=== PATIENT | male | born 2000 | race Caucasian/White ===

== ENCOUNTER 2019-08-14 15:20 | Emergency (ER) | payer OTHER ==
[~2019-08-14] VITALS: Ht 180.3 cm; Wt 75.0 kg
[2019-08-14 15:41] VITALS: BP 110/56
--- NOTE | 2019-08-14 16:09 | PHYS DOC ---
Past Medical History Past Medical History: No Pertinent History Past Surgical History: No Surgical History Smoking Status: Never Smoker Alcohol Use: None Adult General Chief Complaint Chief Complaint: LACERATION/AVULSION HPI HPI Patient is a 19 year old male, accompanied by his employer, who presents to the emergency department with complaints of a laceration between his thumb and index finger of his right hand. Patient states excellently crushed his hand between a piece of equipment and a pole. He denies any numbness, tingling, or weakness of the affected hand. He denies any decreased range of motion of the affected fingers of his right hand. Patient states he is unsure when his last tetanus shot was. He currently rates his pain a 5 out of 10 on the pain scale, he denies any alleviating factors. Review of Systems Review of Systems All other ROS is negative unless otherwise noted in HPI. Current Medications Current Medications Current Medications Medications (Trade) Dose Ordered Sig/Hawk Start Time Stop Time Status Last Admin Dose Admin Diphtheria/ Tetanus/Acell Pertussis (Boostrix) 0.5 ml ONCE ONCE 08/14/19 16:15 08/14/19 16:16 DC 08/14/19 16:12 0.5 ML Lidocaine HCl (Xylocaine-Mpf 1% 2ml Vial) 4 ml 1X ONCE 08/14/19 16:15 08/14/19 16:16 DC 08/14/19 16:11 4 ML Neomycin/ Polymyxin/ Bacitracin (Triple Antibiotic Ointment) 1 pkt 1X ONCE 08/14/19 16:15 08/14/19 16:16 DC 08/14/19 16:11 1 PKT Allergies Allergies Allergies Coded Allergies Type Severity Reaction Last Updated Verified minocycline Allergy Mild 08/14/19 Yes Physical Exam Physical Exam See Above Constitutional: Well developed, well nourished, no acute distress, non-toxic appearance. [] HENT: Normocephalic, atraumatic, bilateral external ears normal, nose normal. [] Eyes: PERRLA, EOMI, conjunctiva normal, no discharge. [] Neck: Normal range of motion, no stridor. [] Cardiovascular:Heart rate regular rhythm, Lungs & Thorax: Respirations even and unlabored, no retractions, no respiratory distress Skin: Warm, dry, no erythema, no rash; 1.5 cm laceration noted between the first and second digits of the right hand on the volar surface, no active bleeding, several surrounding superficial abrasions; R wrist non-tender to palpation, no scaphoid tenderness [] Extremities: R hand; some bony TTP with palpation of proximal R thumb and proximal R index finger, no crepitus, no obvious deformity, no cyanosis, no clubbing, ROM intact, no edema. [] Neurologic: Alert and oriented X 3, no focal deficits noted. [] Psychologic: Affect normal, judgement normal, mood normal. [] Current Patient Data Vital Signs Vital Signs Date Time Temp Pulse Resp B/P (MAP) Pulse Ox O2 Delivery O2 Flow Rate FiO2 08/14/19 15:41 97.9 59 16 110/56 (74) 99 Room Air 97.9 EKG EKG [] Radiology/Procedures Radiology/Procedures Laceration Repair by me: Anesthesia: 1% lidocaine locally Location: R hand volar surface between 1st and 2nd digits Tendon/Joint/Nerves: No injury Foreign body: None detected after copious irrigation and exploration Technique: 3 Simple Interrupted Sutures with 5-0 Ethilon Complexity: No subcutaneous sutures/mucosal repair/edge excision Post Closure Length: 1.5 cm Patient's bleeding was easily controlled in the department and there is no indication of anemia. No evidence of compartment syndrome, neurologic injury, vascular injury, open joint, tendon laceration, or foreign body. Patient is appropriate for outpatient follow up. PROCEDURE: HAND RIGHT 3V Exam: Right hand 3 views INDICATION: Right hand crush TECHNIQUE: Frontal, lateral and oblique views of the right hand Comparisons: None FINDINGS: Bone mineralization is normal. No acute or healed fractures. Soft tissues are unremarkable. Joint spaces are well-maintained. IMPRESSION: No acute osseous abnormality.[] Course & Med Decision Making Course & Med Decision Making Pertinent Labs and Imaging studies reviewed. (See chart for details) [] Dragon Disclaimer Dragon Disclaimer This electronic medical record was generated, in whole or in part, using a voice recognition dictation system. Departure Departure Impression: Primary Impression: Laceration of right hand without complication, excluding fingers Additional Impression: Need for Tdap vaccination Disposition: 01 HOME, SELF-CARE Condition: STABLE Patient Instructions: Laceration Care, Child, Diox-yv-Pare, VIS, Tetanus, Diphtheria (Td); Tetanus, Diphtheria, Pertussis (Tdap) - CDC Additional Instructions: You may take tylenol or ibuprofen as needed for pain. Leave the Dressing that was placed in the ER in place for the next 24 hours, then change the dressing t wice daily and apply antibiotic ointment as needed. Follow up with your primary care doctor or return to the ER in 10-14 days to have sutures removed. Return to the ER sooner if your symptoms worsen or you develop fever, redness, warmth, or drainage from the site. Problem Qualifiers Primary Impression: Laceration of right hand without complication, excluding fingers Encounter type: initial encounter Qualified Codes: S61.411A - Laceration without foreign body of right hand, initial encounter GURVINDER LYNN APRN Aug 14, 2019 16:09
[2019-08-14] MEDS ORDERED: NEOMY/BACITR/POLYMYXIN OINT PACKET. TP ONE (16:15)
[2019-08-14] MEDS ORDERED: DIPHTH,PERTUSS(ACELL),TET TOX 0.5 ML DISP.SYRIN. VAX IM ONE (16:15)
[2019-08-14] MEDS ORDERED: LIDOCAINE 1% PF 2 ML VIAL. INJ ONE (16:15)
--- NOTE | 2019-08-14 16:35 | RAD ---
Exam: Right hand 3 views INDICATION: Right hand crush TECHNIQUE: Frontal, lateral and oblique views of the right hand Comparisons: None FINDINGS: Bone mineralization is normal. No acute or healed fractures. Soft tissues are unremarkable. Joint spaces are well-maintained. IMPRESSION: No acute osseous abnormality. Electronically signed by: Giovanna Barros MD (08/14/2019 4:32 PM) [id number]
== END 2019-08-14 17:05 | disposition home or self-care (01) ==
LOC: ER 15:20
DX: S61.411A Laceration without foreign body of right hand, initial encounter (principal); Z88.1 Allergy status to other antibiotic agents; W23.0XXA Caught, crushed, jammed, or pinched between moving objects, initial encounter; Y93.89 Activity, other specified; Y92.89 Other specified places as the place of occurrence of the external cause; Y99.8 Other external cause status
CPT/HCPCS: 12001; 73130; 90471; 90715; 99283

== ENCOUNTER 2019-08-30 11:29 | Emergency (ER) | payer OTHER ==
[~2019-08-30] VITALS: Ht 180.3 cm; Wt 70.5 kg
[2019-08-30 11:55] VITALS: BP 128/61
--- NOTE | 2019-08-30 12:45 | PHYS DOC ---
Past Medical History Past Medical History: No Pertinent History Past Surgical History: No Surgical History Smoking Status: Never Smoker Alcohol Use: None Adult General Chief Complaint Chief Complaint: SUTURE/STAPLE REMOVAL [facility] Patient is a 19 year old male who presents for suture removal. The patient had sutures placed in his hand on August 14. He states that he was at work and try to pull a pallet lidia out and his hand got hit. He is had no fever, signs of infection. Complete ROS were reviewed and found to be within normal limits, except as documented in the [facility] Allergies Allergies Allergies Coded Allergies Type Severity Reaction Last Updated Verified minocycline Allergy Mild 08/14/19 Yes Physical Exam Physical Exam Constitutional: Well developed, well nourished, no acute distress, non-toxic appearance. [] HENT: Normocephalic, atraumatic, bilateral external ears normal, oropharynx moist, no oral exudates, nose normal. [] Skin: Warm, dry, no erythema, no rash, 3 sutures in R hand, Neurologic: Alert and oriented X 3, normal motor function, normal sensory function, no focal deficits noted. [] Psychologic: Affect normal, judgement normal, mood normal. [] Current Patient Data Vital Signs Vital Signs Date Time Temp Pulse Resp B/P (MAP) Pulse Ox O2 Delivery O2 Flow Rate FiO2 08/30/19 11:55 98.2 108 14 128/61 (83) 99 Room Air 98.2 EKG EKG [] Radiology/Procedures Radiology/Procedures [] Course & Med Decision Making Course & Med Decision Making Pertinent Labs and Imaging studies reviewed. (See chart for details) Will have nursing take sutures out and then d/c home. Dragon Disclaimer Dragon Disclaimer This electronic medical record was generated, in whole or in part, using a voice recognition dictation system. Departure Departure Impression: Primary Impression: Visit for suture removal Disposition: HOME, SELF-CARE Condition: STABLE Referrals: GRISELDA UNDERWOOD MD (PCP) Patient Instructions: Suture Removal Additional Instructions: Thank you for visiting [facility]. We appreciate you trusting us with your care. If any additional problems come up don't hesitate to return to visit us. Please follow up with your primary care provider so they can plan additional care if needed and know about the problem that you had. If symptoms worsen come back to the Emergency Department. Any concerning symptoms that start such as chest pain, shortness of air, weakness or numbness on one side of the body, running high fevers or any other concerning symptoms return to the ER. JOY ARELLANO APRN Aug 30, 2019 12:45
== END 2019-08-30 12:42 | disposition home or self-care (01) ==
LOC: ER 11:29
DX: S61.411D Laceration without foreign body of right hand, subsequent encounter (principal); Z88.8 Allergy status to other drugs, medicaments and biological substances
CPT/HCPCS: 99281